=== PATIENT | female | born 1965 | race Hispanic/Latino ===

== ENCOUNTER 2021-03-16 14:56 | Day surgery (SDC) | payer OTHER ==
[~2021-03-16 14:56] MED LIST: ACETAMINOPHEN 325 MG TABLET PO SCH; NA CHLORIDE 0.9% 250 ML IV SCH
[2021-03-16] MEDS ORDERED: ACETAMINOPHEN 325 MG TABLET ONE (17:51)
[2021-03-16] MEDS ORDERED: NA CHLORIDE 0.9% 250 ML IV SCH (18:00)
[2021-03-16] MEDS ORDERED: NA CHLORIDE 0.9% 200 ML ONE (18:44)
[2021-03-17 00:46] LABS: Hematocrit 30.3 % (36.0-45.0)
[2021-03-17 01:16] VITALS: BP 142/73; TEMP 97.5; O2SAT 100
== END 2021-03-17 00:40 | disposition home or self-care (01) ==
LOC: DS 14:56
PROVIDERS: ATTEND Obstetrics & Gynecology
DX: D64.9 Anemia, unspecified (principal); Z20.822 Contact with and (suspected) exposure to COVID-19
CPT/HCPCS: 36430; 36415; 86900; 86850; 86901; 85018; 85014; U0003; P9016 ×2

== ENCOUNTER 2021-05-03 06:32 | Day surgery (SDC) | payer OTHER ==
[2021-04-27 14:01] LABS: Absolute Lymphocytes (CBC) 1.7 K/uL (0.7-4.9); Basophils % 0.9 % (0-1.3); Hematocrit 38.3 % (36.0-45.0); Lymphocytes % 21.7 % (15.3-44.8); RBC Red Blood Cell Count 4.58 M/uL (3.86-4.86)
[2021-04-27 14:06] LABS: Urine Appearance CLOUDY (Clear); Urine Bilirubin NEGATIVE (Negative); Urine Blood NEGATIVE (Negative); Urine Color YELLOW (Yellow); Urine Glucose 3+ (Negative); Urine Microscopic Reflex ORDER UMIC; Urine Protein NEGATIVE (Negative); Urine Specific Gravity 1.025 (1.005-1.030); Urine Urobilinogen 0.2 mg/dL (0.2-1.0); Urine pH 6.5 (5.0-7.0)
[2021-04-27 14:21] LABS: Urine Bacteria <20 /HPF (<20); Urine RBC <5 /HPF (NONE SEEN)
[2021-05-03] MEDS ORDERED: Ringers Lactate 1,000 ML IV ONE ×2 (07:05→10:32)
[2021-05-03] MEDS ORDERED: SCOPOLAMINE HYDROBROMIDE PATCH TD ONE (07:06)
[2021-05-03] MEDS ORDERED: CEFAZOLIN/SWI 1gm 1 GM/10 ML SYR ONE (07:07)
[2021-05-03] MEDS ORDERED: CEFAZOLIN/SWI 2gm 2 GM/20 ML SYR ONE (07:07)
[2021-05-03] MEDS ORDERED: propofoL 200 MG/20 ML VIAL IV ONE (07:32)
[2021-05-03] MEDS ORDERED: MIDAZOLAM HCL 2 MG/2 ML INJ ONE (07:32)
[2021-05-03] MEDS ORDERED: KETAMINE HCL 500 MG/5 ML VIAL ONE (07:32)
[2021-05-03] MEDS ORDERED: FENTANYL CITR 250 MCG/5 ML ONE (07:32)
[2021-05-03] MEDS ORDERED: LIDOCAINE 2% MPF 5 ML VIAL ONE (07:32)
[2021-05-03] MEDS ORDERED: ROCURONIUM 50 MG/5 ML VIAL IV ONE (07:32)
[2021-05-03] MEDS ORDERED: dexAMETHasone 10 MG/ML VIAL ONE ×2 (07:32→07:34)
[2021-05-03] MEDS ORDERED: NS 0.9% VIAL 10 ML ONE ×2 (07:33→09:02)
[2021-05-03] MEDS ORDERED: ONDANSETRON 4 MG/2 ML VIAL ONE ×2 (07:33→12:49)
[2021-05-03] MEDS ORDERED: CELECOXIB 100 MG CAPSULE ONE (07:34)
[2021-05-03] MEDS ORDERED: ACETAMINOPHEN 500 MG TAB ONE (07:34)
[2021-05-03] MEDS: BUPIVACAINE 0.25% PF 30 ML VIAL ONE ×2 (08:05→08:44)
[2021-05-03] MEDS ORDERED: Phenylephrine HCl 10 MG/ML 1 ML VIAL ONE (08:19)
[2021-05-03] MEDS: Ringers Lactate 1,000 ML IV ONE ×2 (08:44→08:48)
[2021-05-03] MEDS ORDERED: VECURONIUM 10 MG/VIAL IV ONE (08:48)
[2021-05-03] MEDS ORDERED: ALBUMIN HUM 5% 250 ML IV ONE (09:10)
[2021-05-03] MEDS ORDERED: KETOROLAC 30 MG/ML INJ ONE (10:44)
[2021-05-03] MEDS ORDERED: GLYCOPYRROLATE 0.2 MG/ML SYR ONE (11:08)
[2021-05-03] MEDS ORDERED: NEOSTIGMINE 1 MG/ML -5 ML ONE (11:13)
[2021-05-03] MEDS ORDERED: ONDANSETRON 4 MG/2 ML VIAL IV ONE (12:30)
[2021-05-03] MEDS ORDERED: HYDROCODONE/APAP 5/325 MG TAB PO ONE (13:36)
[2021-05-03] MEDS ORDERED: HYDROCODONE/APAP 5/325 MG TAB ONE (13:55)
[2021-05-03 13:56] VITALS: O2SAT 96
[2021-05-03 14:25] VITALS: BP 149/70; TEMP 97.9
== END 2021-05-03 14:20 | disposition home or self-care (01) ==
LOC: OR 06:32
PROVIDERS: ATTEND Obstetrics & Gynecology
PROC: 0UT74ZZ Resection of Bilateral Fallopian Tubes, Percutaneous Endoscopic Approach (ICD-10-PCS; 2021-05-03)
PROC: 0UT94ZZ Resection of Uterus, Percutaneous Endoscopic Approach (ICD-10-PCS; principal; 2021-05-03 07:30)
DX: N92.1 Excessive and frequent menstruation with irregular cycle (principal); D50.0 Iron deficiency anemia secondary to blood loss (chronic); D25.9 Leiomyoma of uterus, unspecified; N94.6 Dysmenorrhea, unspecified; I10 Essential (primary) hypertension; N88.8 Other specified noninflammatory disorders of cervix uteri; N83.8 Other noninflammatory disorders of ovary, fallopian tube and broad ligament; Z20.822 Contact with and (suspected) exposure to COVID-19
CPT/HCPCS: 87088; 85025; 87086; 36415 ×2; 86900; 86850; 84703; 86901; 88307; 87077; 87186; 58573; U0002; J2704; J2370; J2250; J3010; J1100 ×2; P9045; J2710; J0690 ×2; J7120 ×3; J2405 ×3; 81003; 81015